=== PATIENT | female | born 1945 | race Caucasian/White ===

== ENCOUNTER 2019-11-01 18:20 | Emergency (ER) | payer MEDICARE, OTHER, SELFPAY ==
[2019-11-01] VITALS (7 sets, daily range): BP systolic 112–136; BP diastolic 65–79; PULSE 66–80; RESP 16–26; TEMP 36.5–36.6; O2SAT 95–96
--- NOTE | 2019-11-01 19:55 | ED_ITS ---
HPI - Neuro Symptoms/Deficit General Chief Complaint: Neuro Symptoms/Deficit Stated Complaint: Dr wants her to get an MRI, been sudden change Time Seen by Provider: 11/01/19 19:35 Source: patient and family Mode of arrival: Wheelchair Limitations: no limitations History of Present Illness HPI Narrative: Patient being treated for non-Hodgkin's lymphoma with steroids as well asREV/Rituxan with Dr. Salas with [facility]. 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 Last MRI was September 27, 2019. Patient next MRI scheduled or November 15. Concerns from patient and family that patient is becoming more weak and confused and hard time finding her words. called Oncology office and informed to go to nearest hospital with MRI capability for comparison. Patient denies any recent illness cough cold congestion fever chills. No urinary complaints. No nausea vomiting or diarrhea. Denies any chest pain headache. No vision changes.. 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 Patient being treated for lymphoma in the past 5 years. With 2 episodes of remission. Currently being treated/tapered Decadron. History of left bundle-branch block On Anticoagulants: No Related Data Allergies Allergy/AdvReac Type Severity Reaction Status Date / Time gabapentin [GABAPENTIN] Allergy Mild DIZZINESS Unverified 06/18/17 12:07 AND WEAKNESS sulfamethoxazole Allergy Unknown Unverified 06/18/17 12:07 [SULFAMETHOXAZOLE] trimethoprim [TRIMETHOPRIM] Allergy Unknown Unverified 06/18/17 12:07 nitrofurantoin Allergy Verified 11/01/19 19:08 rifamycin Allergy Verified 11/01/19 19:08 rituximab Allergy Verified 11/01/19 19:08 Review of Systems Review of Systems Narrative: GENERAL: Denies chills, fatigue, malaise, fever, sweats. HEENT: Denies sinus pain, ear pain, sore throat, difficulty swallowing, dizziness. RESPIRATORY: Denies dyspnea, cough, wheezing, hemoptysis, sputum. CARDIOVASCULAR: Denies chest pain, palpitations, orthopnea, edema, GASTROINTESTINAL: Denies nausea, vomiting, abdominal pain, diarrhea, constipation, melena. : Denies dysuria, frequency, incontinence, hematuria, urinary retention. MUSCULOSKELETAL: denies weakness, joint pain, or bony pain SKIN: Denies rash, skin lesions, or other NEUROLOGIC: Complains weakness, headache, numbness, complains of expressive aphasia, confusion, seizures, incoordination. PSYCHIATRIC: No concerning psychosocial issues. ROS Unobtainable: All systems reviewed & are unremarkable except as noted in HPI and below Patient History Surgical History Status post appendectomy Status post hysterectomy Status post ovarian cystectomy Family History Grandfather Hypertension Mother Stroke Grandmother Stroke Social History Smoking Status: Never smoker Smoking Status: Never smoker Substance Use Type: does not use Exam Narrative Exam Narrative: GENERAL: patient appears stated age. Well-nourished, well- developed patient, in no distress, not toxic HEAD: Atraumatic. Normocephalic. EYES: Pupils equal round and reactive. Extraocular motions intact. No scleral icterus. No injection or drainage. ENT: Nose without bleeding, purulent drainage. Throat without erythema, tonsillar hypertrophy or exudate. Airway patent. NECK: Trachea midline. Non tender CARDIOVASCULAR: Regular rate and rhythm without murmurs, gallops, or rubs. RESPIRATORY: Clear to auscultation. Breath sounds equal bilaterally. No wheezes, rales, or rhonchi. GASTROINTESTINAL: Abdomen soft, non-tender, nondistended. EXTREMITIES: No edema or joint tenderness. BACK: Nontender without deformity or crepitance. No flank tenderness. NEURO: AOx3. 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 Negative pronator drift. [id number] intact. Bilaterally. Chronic right leg weakness according the patient with attempt to raise right leg off the bed SKIN: No rash or erythema of visible areas PSYCH: Not anxious, is cooperative Initial Vital Signs Initial Vital Signs: Vital Signs Temperature 97.7 F 11/01/19 18:58 Pulse Rate 70 11/01/19 18:58 Respiratory Rate 16 11/01/19 18:58 Blood Pressure 113/72 11/01/19 18:58 Pulse Oximetry 96 11/01/19 18:58 Scores NIH Stroke Scale Level of Conciousness: Alert, keenly responsive Ask month/age: Answers both questions correctly. Open/close eyes, close hand: Performs both tasks correctly Best gaze horizontal: Normal Visual lyons: No visual loss Facial palsy: Normal symetrical movement Left arm drift: No drift for full 10 sec Right arm drift: No drift for full 10 sec Left leg drift: No drift for full 10 sec Right leg drift: No drift for full 10 sec Limb ataxia: Absent Sensory on face/arms/legs: Normal, no sensory loss Best language: No aphasia, normal Dysarthria: Normal Extinction or inattention: No abnormality Total NIH Stroke scale score: 0 Course Course Decision to Admit Date: 11/01/19 Decision to Admit time: 22:00 Orders Ordered: ED Orders 11/01/19 19:52 EKG-12 Lead Stat 11/01/19 20:16 Complete Blood Count AUTO DIFF Stat Comprehensive Metabolic Panel Stat Ethanol (ETOH) Stat Partial Thromboplastin Time Stat Prothrombin Time INR Stat Troponin & CK Cardiac Panel Stat 11/01/19 20:32 CT head/brain wo con Stat 11/01/19 21:27 Urinalysis and Microscopic Stat Urine Culture Stat Urine Drug Screen, Rapid Stat Discontinued Medications Cephalexin HCl (Keflex) 500 mg PO NOW ONE Stop: 11/01/19 22:02 Last Admin: 11/01/19 22:21 Dose: 500 mg Documented by: KIMBERLY Dexamethasone (Decadron) 10 mg IV NOW ONE Stop: 11/01/19 21:28 Last Admin: 11/01/19 21:20 Dose: 10 mg Documented by: KIMBERLY Heparin Sodium (Porcine) (Heparin Flush (Port)) 500 unit IV PRN PRN PRN Reason: Flush Last Admin: 11/01/19 23:48 Dose: 500 unit Documented by: RICH Lidocaine HCl (Xylocaine 1%) 1 ml SUBCUT NOW ONE Stop: 11/01/19 19:56 Last Admin: 11/01/19 20:24 Dose: Not Given Documented by: RICH Reevaluation(s) Reevaluation #1: Patient requiring assistance to walk to the bathroom Time: 21:26 Consultations Consultation #1: Spoke with Oncology Dr Smart, CT scan results. Patient to be transferred to [facility]. Give Decadron IV 10 mg Time: 21:27 Consultation #2: Spoke with [facility] hospitalist Dr. grace...will admit Time: 22:00 Vital Signs Vital signs: Vital Signs - 8 hr 11/01/19 21:34 11/01/19 21:35 11/01/19 22:00 Pulse Rate 67 68 74 Respiratory Rate 20 25 H Blood Pressure 136/79 112/72 Pulse Oximetry 95 95 11/01/19 22:30 11/01/19 23:08 Pulse Rate 80 79 Respiratory Rate 21 26 H Blood Pressure 118/65 Pulse Oximetry 96 MDM - Neuro Symptoms/Deficit Differential Diagnosis Differential diagnosis: Likely cerebrovascular accident and transient cerebral ischemia Medical Records Attestation: I reviewed the patient's medical records. Lab Data Attestation: I reviewed the patient's lab results. Result diagrams: 11/01/19 20:16 11/01/19 20:16 Labs: Lab Results 11/01/19 11/01/19 11/01/19 Range/Units 20:16 20:16 20:16 WBC 6.2 (4.5-11.0) X10^3/uL RBC 4.13 (4.0-5.2) X10^6/uL Hgb 12.8 (12.0-16.0) g/dL Hct 38.2 (36-46) % MCV 92.3 (80-100) fL MCH 30.9 (26-34) PG MCHC 33.4 (30-36) % RDW 18.2 H (11.6-14.8) % Plt Count 158 (150-400) X10^3/uL Neut % (Auto) 78.8 H (50-75) % Lymph % (Auto) 16.3 L (25-40) % [place] % (Auto) 4.5 (3-14) % Eos % (Auto) 0.0 L (2-4) % Baso % (Auto) 0.4 (0-2) % Neut # (Auto) 4900 (9671-6649) /uL Lymph # (Auto) 1000 L (2354-5835) /uL [place] # (Auto) 300 (0-900) /uL Eos # (Auto) 0 (0-450) /uL Baso # (Auto) 0 (0-100) /uL PT 13.9 H (10.1-12.7) SECONDS INR 1.2 (0.9-1.3) APTT 44 H (26.4-36.2) SECONDS Sodium 138 (137-145) mmol/L Potassium 3.8 (3.4-5.1) mmol/L Chloride 108 H (98-107) mmol/L Carbon Dioxide 25 (22-32) mmol/L BUN 17 (7-17) mg/dL Creatinine 0.74 (0.52-1.04) mg/dL Estimated GFR > 60.0 (>60) mL/min BUN/Creatinine Ratio 23.0 H (6-22) Glucose 131 H (80-110) mg/dL Calcium 8.9 (8.4-10.2) mg/dL Total Bilirubin 0.7 (0.2-1.3) mg/dL AST 20 (14-36) IU/L ALT 18 (<35) IU/L Alkaline Phosphatase 65 (38-126) U/L Total Creatine Kinase < 20 L (30-135) U/L CK-MB (CK-2) TNP CK-MB (CK-2) Rel Index TNP Troponin I < 0.012 (0.01-0.034) ng/mL Total Protein 6.5 (6.3-8.2) g/dL Albumin 3.8 (3.5-5.0) g/dL Globulin 2.7 (1.7-4.1) g/dL Albumin/Globulin Ratio 1.4 (1.0-2.8) Urine Color Urine Appearance Urine pH (4.5-8.0) Ur Specific [place] (1.000-1.035) Urine Protein (Negative) Urine Glucose (UA) (Negative) g/dL Urine Ketones (NEGATIVE) Urine Occult Blood (Negative) Urine Nitrate (Negative) Urine Bilirubin (NEGATIVE) Urine Urobilinogen (0.2) E.U./dL Ur Leukocyte Esterase (NEGATIVE) Urine RBC (0-5/HPF) Urine WBC (0-5/HPF) Ur Squamous Epith Cells (0-5/HPF) Ur Transition Epith Cell (0-5/HPF) Urine Bacteria (None) Ur Culture Indicated? U Opiates 300ng/mL cut (Negative) Ur Oxycodone Screen (Negative) Urine Methadone Screen (Negative) Ur Barbiturates Screen (Negative) U Tricyclic Antidepress (Negative) Ur Phencyclidine Scrn (Negative) Ur Amphetamines Screen (Negative) U Methamphetamines Scrn (Negative) Ur MDMA Scrn (Ecstasy) (Negative) U Benzodiazepines Scrn (Negative) Urine Cocaine Screen (Negative) U Marijuana (THC) Screen (Negative) Ethyl Alcohol < 10 ( - 10) mg/dL COVID-19 PCR (Negative) 11/01/19 11/01/19 11/01/19 Range/Units 21:27 21:27 22:25 WBC (4.5-11.0) X10^3/uL RBC (4.0-5.2) X10^6/uL Hgb (12.0-16.0) g/dL Hct (36-46) % MCV (80-100) fL MCH (26-34) PG MCHC (30-36) % RDW (11.6-14.8) % Plt Count (150-400) X10^3/uL Neut % (Auto) (50-75) % Lymph % (Auto) (25-40) % [place] % (Auto) (3-14) % Eos % (Auto) (2-4) % Baso % (Auto) (0-2) % Neut # (Auto) (6622-3966) /uL Lymph # (Auto) (1517-6490) /uL [place] # (Auto) (0-900) /uL Eos # (Auto) (0-450) /uL Baso # (Auto) (0-100) /uL PT (10.1-12.7) SECONDS INR (0.9-1.3) APTT (26.4-36.2) SECONDS Sodium (137-145) mmol/L Potassium (3.4-5.1) mmol/L Chloride (98-107) mmol/L Carbon Dioxide (22-32) mmol/L BUN (7-17) mg/dL Creatinine (0.52-1.04) mg/dL Estimated GFR (>60) mL/min BUN/Creatinine Ratio (6-22) Glucose (80-110) mg/dL Calcium (8.4-10.2) mg/dL Total Bilirubin (0.2-1.3) mg/dL AST (14-36) IU/L ALT (<35) IU/L Alkaline Phosphatase (38-126) U/L Total Creatine Kinase (30-135) U/L CK-MB (CK-2) CK-MB (CK-2) Rel Index Troponin I (0.01-0.034) ng/mL Total Protein (6.3-8.2) g/dL Albumin (3.5-5.0) g/dL Globulin (1.7-4.1) g/dL Albumin/Globulin Ratio (1.0-2.8) Urine Color Yellow Urine Appearance Sl cloudy Urine pH 6.5 (4.5-8.0) Ur Specific [place] 1.015 (1.000-1.035) Urine Protein Negative (Negative) Urine Glucose (UA) Negative (Negative) g/dL Urine Ketones Trace H (NEGATIVE) Urine Occult Blood 1+ H (Negative) Urine Nitrate Positive H (Negative) Urine Bilirubin Negative (NEGATIVE) Urine Urobilinogen 0.2 (0.2) E.U./dL Ur Leukocyte Esterase 1+ H (NEGATIVE) Urine RBC 1-5/hpf (0-5/HPF) Urine WBC 10-30/hpf H (0-5/HPF) Ur Squamous Epith Cells 1-5 /hpf (0-5/HPF) Ur Transition Epith Cell 1-5/hpf (0-5/HPF) Urine Bacteria Many (>30) H (None) Ur Culture Indicated? Specimen cultured U Opiates 300ng/mL cut Negative (Negative) Ur Oxycodone Screen Negative (Negative) Urine Methadone Screen Negative (Negative) Ur Barbiturates Screen Negative (Negative) U Tricyclic Antidepress Negative (Negative) Ur Phencyclidine Scrn Negative (Negative) Ur Amphetamines Screen Negative (Negative) U Methamphetamines Scrn Negative (Negative) Ur MDMA Scrn (Ecstasy) Negative (Negative) U Benzodiazepines Scrn Negative (Negative) Urine Cocaine Screen Negative (Negative) U Marijuana (THC) Screen Negative (Negative) Ethyl Alcohol ( - 10) mg/dL COVID-19 PCR Negativen (Negative) Urine Dip Bedside Urine Glucose Negative Bedside Urine Bilirubin - Negative Bedside Urine Ketone + 15 Urine Specific [place] 1.015 Bedside Urine Occult Blood + Bedside Urine pH 6 Bedside Urine Protein - Negative Bedside Urine Urobilinogen - Negative Bedside Urine Nitrite + Positive Bedside Urine Leukocytes +++ [address] scan - head: Radiologist's Impression: [address] [address] [address] Scan Report Signed Patient: Deborah Heath [facility]#: [id number] : 5Acct:[id number] Age/Sex: 74 / FDate of Service: 11/01/19 Loc: ED Accession Number: [id number] Procedure: CT head/brain wo con Ordering Provider: Wallace Cardenas MD PROCEDURE: CT HEAD/BRAIN WO CON INDICATIONS: Confusion Additional history: History of lymphoma. Being treated at [facility] per the patient. TECHNIQUE: Noncontrast 4.5 mm thick angled axial sections acquired from the foramen magnum to the vertex, with coronal and sagittal reformats. For radiation dose reduction, the following was used: automated exposure control, adjustment of mA and/or kV according to patient size. COMPARISON: None available. FINDINGS: Image quality: Excellent. CSF spaces: Basal cisterns are patent. No extra-axial fluid collections. There is minimal mass effect on the left lateral ventricle particularly on the posterior horn. Brain: Left occipital mass measuring 4.4 x 4.0 x 3.3 cm, (07/24 and 04/28). The mass is slightly hyperdense peripherally with central hypodensity. There is surrounding vasogenic hypodensity most compatible with edema which extends throughout the left cerebral hemisphere. There is effacement of the left cerebral hemisphere sulci compared to the right. No significant midline shift appreciated. No infarct is identified. No acute intracranial hemorrhage. Age-related parenchymal loss. Skull and face: Prior left craniotomy. No fracture. Sinuses: Visualized sinuses and mastoids are clear. IMPRESSION: 1. Left occipital mass measuring 4.4 cm. 2. Extensive left cerebral hemisphere edema. Effacement of left cortical sulci and mass effect on the left lateral ventricle. 3. No acute intracranial hemorrhage. Dictated by: Brian Sheridan M.D. on 11/01/2019 at 21:06 Approved by: Brian Sheridan M.D. on 11/01/2019 at 21:13 ECG Data Attestation: I personally reviewed and interpreted this ECG as follows: Interpretation: Sinus rhythm rate 66, no ST elevation depression. Left bundle branch block, no comparison MDM Narrative Medical decision making narrative: Patient will require transfer tonight. I spoke with oncologist CT scan results. With edema and effacement results on CT scan. Clinically not a stroke. Symptoms likely due to lesion on the brain which is worsening Discharge Plan Departure Patient Disposition: [facility] Clinical Impression: Acute UTI (urinary tract infection) Altered mental status Qualifiers: Altered mental status type: unspecified Qualified Code(s): R41.82 - Altered mental status, unspecified Discharge Date/Time: 11/01/19 23:59
[2019-11-01 20:23] LABS: Add Manual Diff / Slide Review NO; Basophils Absolute Auto 0 /uL (0-100); Basophils Percent Auto 0.4 % (0-2); Eosinophils Absolute Auto 0 /uL (0-450); Hematocrit 38.2 % (36-46); Hemoglobin 12.8 g/dL (12.0-16.0); Lymphocytes Absolute Auto 1000 /uL (1100-4500); Lymphocytes Percent Auto 16.3 % (25-40); Mean Corpuscular HGB Conc 33.4 % (30-36); Mean Corpuscular Hemoglobin 30.9 PG (26-34); Mean Corpuscular Volume 92.3 fL (80-100); Monocytes Absolute Auto 300 /uL (0-900); Monocytes Percent Auto 4.5 % (3-14); Neutrophils Absolute Auto 4900 /uL (1500-7000); Neutrophils Percent Auto 78.8 % (50-75); Platelet Count 158 X10^3/uL (150-400); Red Blood Cell Count 4.13 X10^6/uL (4.0-5.2); Red Cell Distribution Width 18.2 % (11.6-14.8); White Blood Cell Count 6.2 X10^3/uL (4.5-11.0)
[2019-11-01 20:31] LABS: INR 1.2 (0.9-1.3); Prothrombin Time 13.9 SECONDS (10.1-12.7)
--- NOTE | 2019-11-01 20:32 | DI.CT.S_ITS ---
PROCEDURE: CT HEAD/BRAIN WO CON INDICATIONS: Confusion Additional history: History of lymphoma. Being treated at [facility] per the patient. TECHNIQUE: Noncontrast 4.5 mm thick angled axial sections acquired from the foramen magnum to the vertex, with coronal and sagittal reformats. For radiation dose reduction, the following was used: automated exposure control, adjustment of mA and/or kV according to patient size. COMPARISON: None available. FINDINGS: Image quality: Excellent. CSF spaces: Basal cisterns are patent. No extra-axial fluid collections. There is minimal mass effect on the left lateral ventricle particularly on the posterior horn. Brain: Left occipital mass measuring 4.4 x 4.0 x 3.3 cm, (07/24 and 04/28). The mass is slightly hyperdense peripherally with central hypodensity. There is surrounding vasogenic hypodensity most compatible with edema which extends throughout the left cerebral hemisphere. There is effacement of the left cerebral hemisphere sulci compared to the right. No significant midline shift appreciated. No infarct is identified. No acute intracranial hemorrhage. Age-related parenchymal loss. Skull and face: Prior left craniotomy. No fracture. Sinuses: Visualized sinuses and mastoids are clear. IMPRESSION: 1. Left occipital mass measuring 4.4 cm. 2. Extensive left cerebral hemisphere edema. Effacement of left cortical sulci and mass effect on the left lateral ventricle. 3. No acute intracranial hemorrhage. Dictated by: Brian Sheridan M.D. on 11/01/2019 at 21:06 Approved by: Brian Sheridan M.D. on 11/01/2019 at 21:13
[2019-11-01 20:34] LABS: PTT Partial Thromboplastin Tim 44 SECONDS (26.4-36.2)
[2019-11-01 20:38] LABS: Alanine Aminotransferase 18 IU/L (<35); Albumin 3.8 g/dL (3.5-5.0); Albumin Globulin Ratio 1.4 (1.0-2.8); Alkaline Phosphatase 65 U/L (38-126); Aspartate Aminotransferase 20 IU/L (14-36); Bilirubin Total 0.7 mg/dL (0.2-1.3); Blood Urea Nitrogen 17 mg/dL (7-17); Calcium 8.9 mg/dL (8.4-10.2); Carbon Dioxide 25 mmol/L (22-32); Chloride 108 mmol/L (98-107); Creatine Kinase < 20 U/L (30-135); Estimated Glomerular Filt Rate > 60.0 mL/min (>60); Globulin 2.7 g/dL (1.7-4.1); Glucose 131 mg/dL (80-110); HEMOLYSIS < 15 (0-50); Potassium 3.8 mmol/L (3.4-5.1); Sodium 138 mmol/L (137-145); Total Protein 6.5 g/dL (6.3-8.2)
--- NOTE | 2019-11-01 20:42 | PC.NURSE ---
Some mild Difficulty wording finding on Stroke packet pictures as well as slow articulation with reading sentences. Right leg drifts a bit when held up.
[2019-11-01 20:49] LABS: Ethanol (ETOH) < 10 mg/dL; Troponin I < 0.012 ng/mL (0.01-0.034)
[2019-11-01] MEDS: DEXAMETHASONE 10 MG/ML VIAL IV (21:20)
[2019-11-01 21:57] LABS: Appearance Urine UA SL CLOUDY; Bilirubin Urine UA NEGATIVE (NEGATIVE); Color Urine UA YELLOW; Glucose Urine UA NEGATIVE (Negative); Ketones Urine UA TRACE (NEGATIVE); Leukocyte Esterase Urine UA 1+ (NEGATIVE); Nitrite Urine UA POSITIVE (Negative); Occult Blood Urine UA 1+ (Negative); Protein Urine UA NEGATIVE (Negative); Specific Gravity Urine UA 1.015 (1.000-1.035); Urobilinogen Urine UA 0.2 E.U./dL (0.2)
[2019-11-01 21:59] LABS: pH Urine UA 6.5 (4.5-8.0)
[2019-11-01 22:08] LABS: RBC Urine 1-5/HPF (0-5/HPF)
[2019-11-01 22:09] LABS: Bacteria Urine Many (>30); Culture Indicated Urine Specimen Cultured; Squamous Epithelial Cell Urine 1-5 /HPF (0-5/HPF); Transitional Epi Cells Urine 1-5/HPF (0-5/HPF); UR Morphine/Opiate cutoff 300 Negative (Negative); Ur Creatinine Normal (Normal); Ur Specific Gravity Normal (Normal); Urine Amphetamines Negative (Negative); Urine Barbiturates Negative (Negative); Urine Benzodiazepines Negative (Negative); Urine Cocaine Negative (Negative); Urine MDMA Negative (Negative); Urine Methadone Negative (Negative); Urine Methamphetamines Negative (Negative); Urine Oxycodone Negative (Negative); Urine Phencyclidine Negative (Negative); Urine Tetrahydrocannabinol Negative (Negative); Urine Tricyclic Antidepressant Negative (Negative); Urine pH Normal (Normal); WBC Urine 10-30/HPF (0-5/HPF)
[2019-11-01] MEDS: cephALEXin 250 MG CAPSULE 500 MG PO (22:21)
[2019-11-03 10:18] LABS: COVID19 -Nasal RAPID Negative (Negative)
== END 2019-11-01 23:59 | disposition short-term general hospital (02) ==
PROVIDERS: Emergency Provider Emergency Medicine; Family Provider Nurse Practitioner
DX: R41.82 Altered mental status, unspecified (principal); N39.0 Urinary tract infection, site not specified
CPT/HCPCS: 36415; 70450; 80053; 80305; 80320; 81001; 81003; 82550; 84484; 85025; 85610; 85730; 87077; 87086; 87186; 87635; 93005; 96374; 99285; J1100; J1642